=== PATIENT | male | born 1960 | race Caucasian/White ===

== ENCOUNTER 2017-08-16 12:00 | Observation (INO) | payer MEDICARE ==
[2017-08-16 13:05] LABS: ABS Basophils 0 10^3/ul (0-0.2); ABS Eosinophils 0.2 10^3/ul (0-0.6); ABS Lymphocytes 2.1 10^3/ul (1.0-4.8); ABS Monocytes 0.7 10^3/ul (0-0.8); ABS Neutrophils 5.8 10^3/ul (1.5-7.7); ABS Nucleated RBC 0 10^3/ul; Eosinophil % 2.7 % (0-6); Hematocrit 37 % (42-52); Hemoglobin 12.5 g/dl (14.0-18.0); Lymphocyte % 23.4 % (25-47); Mean Corpuscular HGB Conc 34 g/dl (31-36); Mean Corpuscular Hemoglobin 29 pg (27-31); Mean Corpuscular Volume 85 fL (80-94); Mean Platelet Volume 10 um3 (7.4-10.4); Nucleated Red Blood Cells % 0; Platelet Count 227 10^3/ul (150-450); Red Blood Count 4.36 10^6/ul (4.0-5.4); Red Cell Distribution Width 15 % (10.5-15); White Blood Count 8.9 10^3/ul (3.5-10.8)
[2017-08-16 13:22] LABS: EGFR Non-African American 85.1 (>60)
--- NOTE | 2017-08-16 14:46 | RAD ---
HISTORY: Calf pain COMPARISONS: None relevant TECHNIQUE: Multiple transverse and longitudinal ultrasound images were obtained of the right lower extremity from the level of the common femoral vein inferiorly through to the infrapopliteal veins using grayscale, color Doppler, and spectral Doppler imaging with and without compression and with augmentation. Comparison images were obtained of the contralateral common femoral vein. FINDINGS: VEINS: The venous system of the right lower extremity is compressible throughout its course, with normal flow on color Doppler imaging and normal response to augmentation on spectral Doppler imaging. SOFT TISSUES: Unremarkable. OTHER FINDINGS: None. IMPRESSION: NO RIGHT LOWER EXTREMITY DEEP VEIN THROMBOSIS
[2017-08-16] MEDS ORDERED: Morphine INJ* 2 MG/ML 1 ML CARPUJECT IV PRN (15:26)
[2017-08-16] MEDS ORDERED: Albuterol HFA INHALER* 8 gm MDI INH PRN (15:28)
[2017-08-16] MEDS: Cyclobenzaprine TAB* 10 MG PO PRN ×2 (16:16→23:48)
[2017-08-16] MEDS: Gabapentin CAP(*) 300 MG PO SCH ×2 (16:16→23:34)
[2017-08-16] MEDS: Acetaminophen TAB* 325 MG PO PRN ×2 (16:17→23:49)
[2017-08-16] MEDS: oxyCODONE TAB* 5 MG TAB PO PRN ×2 (16:17→23:49)
[2017-08-16] MEDS: Albuterol/Ipratropium NEB.SOL* Albuterol 2.5 MG/Ipratropium 0.5 MG 3 ML INH PRN (16:53)
--- NOTE | 2017-08-16 18:29 | ED ---
Florencio Taylor Angela, scribed for Willie Hester MD on 08/16/17 at 1228 . HPI Chest Pain - HPI Summary HPI Summary: This pt is a 56 y/o male presenting to [facility] via helicopter from [facility] for chest pain. Upon arrival to the ED, pt denies any chest pain, rating it 0/10 in severity. Pt currently has no complaints. He states he is feeling better than when he was in [facility]. Pt reports he was making himself breakfast this morning at around 08:30 when he had sudden onset of chest pain walking from the living room to the kitchen. He describes the chest pain then as sharp and mid sternal. Pt rates the pain then as 4/10 and at its worse it was rated 7/10 in severity. He denies diaphoresis, dizziness, lightheadedness, LE swelling, abd pain. Pt note chronic SOB from COPD, unchanged from baseline. PMHx: COPD, MA. Pt states he currently is on simvastatin, Lisinopril, and 2 baby aspirin every night. 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 - History of Current Complaint Chief Complaint: EDChestWallPain Time Seen by Provider: 08/16/17 12:10 Hx Obtained From: Patient Onset/Duration: Started Hours Ago Time of Onset: 08:30 - now resolved Timing: Lasting Hours Initial Severity: Moderate - 4/10 Current Severity: None Pain Intensity: 0 - now resolved Pain Scale Used: 0-10 Numeric Chest Pain Location: Mid Sternal Chest Pain Radiates: No Character: Sharp/Stabbing - sharp Aggravating Factor(s): Nothing Alleviating Factor(s): Nothing Associated Signs and Symptoms: Positive: Negative - Allergy/Home Medications Allergies/Adverse Reactions: Allergies Allergy/AdvReac Type Severity Reaction Status Date / Time pneumococcal vaccine Allergy Intermediate Swelling Verified 08/16/17 16:16 MS Pneumococcal Vaccine Allergy Swelling Verified 08/16/17 16:40 buspirone AdvReac Intermediate Dizziness Verified 08/16/17 16:16 MS Buspirone AdvReac Dizziness Verified 08/16/17 16:41 Home Medications: Home Medications Albuterol Sulfate [Proventil Hfa] 2 puff INH Q4HR PRN 08/16/17 [History Confirmed 08/16/17] Aspirin EC Low Dose* [Ecotrin EC Low Dose 81 MG*] 162 mg PO DAILY 08/16/17 [ History Confirmed 08/16/17] Cyclobenzaprine TAB* [Flexeril 10 MG TAB*] 10 mg PO TID PRN 08/16/17 [History Confirmed 08/16/17] Fluticasone-Salmeterol 500-50* [Advair Diskus 500-50*] 1 puff INH BID 08/16/17 [ History Confirmed 08/16/17] Gabapentin CAP(*) [Neurontin 300 CAP(*)] 300 mg PO TID 08/16/17 [History Confirmed 08/16/17] LevoCETirizine TAB (NF) [Xyzal TAB (NF)] 5 mg PO DAILY 08/16/17 [History Confirmed 08/16/17] Lisinopril TAB* [Prinivil TAB*] 20 mg PO DAILY 08/16/17 [History Confirmed 08/16] Oxycodone TAB(NF) [Oxycodone HCl 10 MG] 10 mg PO Q6H PRN 08/16/17 [History Confirmed 08/16/17] Pantoprazole TAB (NF) [Protonix TAB (NF)] 40 mg PO DAILY 08/16/17 [History Confirmed 08/16/17] Roflumilast (NF) [Daliresp (NF)] 500 mcg PO DAILY 08/16/17 [History Confirmed ] Simvastatin (NF) [Zocor (NF)] 40 mg PO BEDTIME 08/16/17 [History Confirmed 08/16] PMH/Surg Hx/FS Hx/Imm Hx Endocrine/Hematology History: Denies: Hx Diabetes Cardiovascular History: Reports: Hx Hypertension, Hx Myocardial Infarction Infectious Disease History: No Infectious Disease History: Denies: Traveled Outside the [place] in Last 30 Days - Family History Known Family History: Positive: Cardiac Disease - MA, Hypertension Negative: Diabetes - Social History Alcohol Use: None Substance Use Type: Reports: Cocaine Smoking Status (MU): Never Smoked Tobacco Review of Systems Negative: Fever, Chills, Skin Diaphoresis Positive: Chest Pain - NOW RESOLVED Negative: Shortness Of Breath Negative: Abdominal Pain Negative: Edema Neurological: Other - NEG: dizziness, lightheadedness All Other Systems Reviewed And Are Negative: Yes Physical Exam - Summary Physical Exam Summary: VITAL SIGNS: Reviewed. GENERAL: Patient is a well-developed and nourished male who is lying comfortable in the stretcher. Pt is not in no acute distress. Patient is not in any acute respiratory distress. Pt has no complaints. HEAD AND FACE: No signs of trauma. No ecchymosis, hematomas or skull depressions. No sinus tenderness. EYES: PERRLA, EOMI x 2, No injected conjunctiva, no nystagmus. EARS: Hearing grossly intact. Ear canals and tympanic membranes are within normal limits. MOUTH: Oropharynx within normal limits. NECK: Supple, trachea is midline, no adenopathy, no JVD, no carotid bruit, no c- spine tenderness, neck with full ROM. CHEST: Symmetric, no tenderness at palpation LUNGS: Some crackles at the bases of the lungs. CVS: Regular rate and rhythm, S1 and S2 present, no murmurs or gallops appreciated. ABDOMEN: Soft, non-tender. No signs of distention. No rebound no guarding, and no masses palpated. Bowel sounds are normal. EXTREMITIES: FROM in all major joints, no edema, no cyanosis or clubbing. NEURO: Alert and oriented x 3. No acute neurological deficits. Speech is normal and follows commands. SKIN: Dry and warm Triage Information Reviewed: Yes Vital Signs On Initial Exam: Initial Vitals Temp Pulse Resp BP Pulse Ox 98.7 F 88 20 113/84 98 08/16/17 12:13 08/16/17 12:13 08/16/17 12:13 08/16/17 12:13 08/16/17 12:13 Vital Signs Reviewed: Yes Diagnostics - Vital Signs Vital Signs Temp Pulse Resp BP Pulse Ox 08/16/17 12:13 98.7 F 88 20 113/84 98 - Laboratory Lab Results: Lab Results 08/16/17 08/16/17 08/16/17 Range/Units 12:34 12:34 12:34 WBC 8.9 (3.5-10.8) 10^3/ul RBC 4.36 (4.0-5.4) 10^6/ul Hgb 12.5 L (14.0-18.0) g/dl Hct 37 L (42-52) % MCV 85 (80-94) fL MCH 29 (27-31) pg MCHC 34 (31-36) g/dl RDW 15 (10.5-15) % Plt Count 227 (150-450) 10^3/ul MPV 10 (7.4-10.4) um3 Neut % (Auto) 65.0 (38-83) % Lymph % (Auto) 23.4 L (25-47) % [place] % (Auto) 8.4 (1-9) % Eos % (Auto) 2.7 (0-6) % Baso % (Auto) 0.5 (0-2) % Absolute Neuts (auto) 5.8 (1.5-7.7) 10^3/ul Absolute Lymphs (auto) 2.1 (1.0-4.8) 10^3/ul Absolute Monos (auto) 0.7 (0-0.8) 10^3/ul Absolute Eos (auto) 0.2 (0-0.6) 10^3/ul Absolute Basos (auto) 0 (0-0.2) 10^3/ul Absolute Nucleated RBC 0 10^3/ul Nucleated RBC % 0 Sodium 136 (133-145) mmol/L Potassium 4.2 (3.5-5.0) mmol/L Chloride 102 (101-111) mmol/L Carbon Dioxide 29 (22-32) mmol/L Anion Gap 5 (2-11) mmol/L BUN 21 (6-24) mg/dL Creatinine 0.92 (0.67-1.17) mg/dL Est GFR ( Amer) 109.4 (>60) Est GFR (Non-Af Amer) 85.1 (>60) BUN/Creatinine Ratio 22.8 H (8-20) Glucose 106 H (70-100) mg/dL Calcium 9.1 (8.6-10.3) mg/dL Magnesium 2.5 (1.9-2.7) mg/dL Total Bilirubin 0.60 (0.2-1.0) mg/dL AST 21 (13-39) U/L ALT 56 H (7-52) U/L Alkaline Phosphatase 63 (34-104) U/L Total Creatine Kinase 89 (10-223) U/L CK-MB (CK-2) 5.8 (0.6-6.3) ng/mL Troponin I 0.00 (<0.04) ng/mL B-Natriuretic Peptide 17 ( - 100) pg/mL Total Protein 6.3 L (6.4-8.9) g/dL Albumin 3.6 (3.2-5.2) g/dL Globulin 2.7 (2-4) g/dL Albumin/Globulin Ratio 1.3 (1-3) TSH 0.99 (0.34-5.60) mcIU/mL Result Diagrams: 08/16/17 12:34 08/16/17 12:34 Lab Statement: Any lab studies that have been ordered have been reviewed, and results considered in the medical decision making process. - Ultrasound No standard instances Ultrasound Interpretation: No Acute Changes - Right Lower Extremity US IMPRESSION: No right lower extremity deep vein thrombosis. Dr. Hester has reviewed this radiology report. Ultrasound Interpretation Completed By: Radiologist - EKG 12:09 Cardiac Rate: NL EKG Rhythm: Sinus Tachycardia - at 89 bpm Ectopy: PVCs - multiple EKG Interpretation: questionable ST elevation less than 1 mm in aVF. Chest Pain Course/Dx - Course Assessment/Plan: This pt is a 56 y/o male presenting to [facility] via helicopter from [facility] for chest pain. Upon arrival to the ED, pt denies any chest pain, rating it 0/10 in severity. Pt currently has no complaints. He states he is feeling better than when he was in [facility]. Pt reports he was making himself breakfast this morning at around 08:30 when he had sudden onset of chest pain walking from the living room to the kitchen. He describes the chest pain then as sharp and mid sternal. Pt rates the pain then as 4/10 and at its worse it was rated 7/10 in severity. He denies diaphoresis, dizziness , lightheadedness, LE swelling, abd pain. Pt note chronic SOB from COPD, unchanged from baseline. PMHx: COPD, MA. Pt states he currently is on simvastatin, Lisinopril, and 2 baby aspirin every night. Pt received nitro, ASA , and heparin [employer] HADOOP DEVELOPER to the ED. Initially the pt was transferred via helicopter from [facility] reporting he had an acute MA. Dr. Connors was not convinced of these findings and requested for the pt to be evaluated in the ED. At arrival to the ED, pt reports no chest pain rating it 0/10, no dizziness, and no headache. He reports no other symptoms. At [facility], the pt was given nitroglycerin. I repeated the blood work which shows slight anemia without any other abnormalities. Chest XR from [facility] was read as no acute disease. Pt was complaining of right calf pain so I decided to do an ultrasound, which is negative for DVT. EKG shows NSR at 89 bpm with multiple PVS and questionable ST elevation less than 1 mm in aVF. At this point I discussed with Dr. Connors, who recommends admission to the hospitalist. I discussed the pts case with Dr. Ornelas, hospitalist, who accepts the pt for admission. Pt is hemodynamically stable, alert and oriented x3. - Chest Pain Differential Diagnosis/HQI/PQRI: Acute MA, ACS, Angina, Aortic Aneurysm, CHF, Chest Wall, GI Disease - Diagnoses Provider Diagnoses: Chest pain, rule out ACS - Provider Notifications Discussed Care Of Patient With: Caleb Ornelas Time Discussed With Above Provider: 14:00 Instructed by Provider To: Other - I discussed pt care with Dr. Orneals, hospitalist, who has agreed to admit the pt. Discharge - Discharge Plan Condition: Stable Disposition: ADMITTED TO [facility] The documentation as recorded by the Florencio gaming Angela accurately reflects the service I personally performed and the decisions made by me, Willie Hester MD.
--- NOTE | 2017-08-16 20:28 | HP ---
CC: Dr. Hughes * HISTORY AND PHYSICAL: DATE OF ADMISSION: 08/16/17 PRIMARY CARE PROVIDER: Dr. Hughes from [place]. CHIEF COMPLAINT: Chest pain. HISTORY OF PRESENT ILLNESS: Mr. Flor is a 56-year-old male with history of COPD, not on oxygen with recent exacerbation for which he needed to be hospitalized at [facility] up to a week ago. The patient presented to [facility] today complaining of sharp severe chest pain localized in the left lower chest, radiating to the back, not pleuritic and not worsened with movement or change of position. The pain lasted approximately 30 minutes and resolved after nitroglycerin and morphine treatment at [facility]. The patient stated he never had pain like that before. He was transferred from [facility] to our facility for further evaluation. His initial troponin is unremarkable and EKG showed sinus tachycardia with minimal ST changes. The patient is going to be placed on observation with a diagnosis of chest pain to rule out ischemia. PAST MEDICAL HISTORY: 1. COPD, not on oxygen. Recent hospitalization a week ago at [facility] noted. 2. History of cardiac catheterization at [facility] in [place] in 2004 with stent to the RCA. 3. History of ACL repair on the right. 4. History of hernia inguinal repair with mesh bilaterally. 5. History of right hand tendon repair. 6. History of tonsillectomy. 7. History of chronic lower back pain. 8. Gastroesophageal reflux disease. MEDICATIONS: Include: 1. Xyzal 5 mg daily. 2. Albuterol inhaler 2 puffs every 4 hours p.r.n. 3. Lisinopril 20 mg daily. 4. Aspirin 162 mg daily. 5. Daliresp 500 mcg daily. 6. Simvastatin 40 mg daily. 7. Gabapentin 300 mg 3 times a day. 8. Advair 500/50 one inhalation b.i.d. 9. Flexeril 10 mg 3 times a day p.r.n. 10. Oxycodone 10 mg every 6 hours p.r.n. 11. Protonix 40 mg daily. ALLERGIES: PNEUMOCOCCAL VACCINE and BUSPAR. FAMILY HISTORY: Positive for father who secondary to COPD at the age of 63. Mother with history of heart disease who in her 80s. SOCIAL HISTORY: The patient has a history of 20-pack year smoking and he quit over 20 years ago. He denies any alcohol or drug use. He is on disability due to his lower back. He is and his is his surrogate and his 's name is Yumiko Flor. REVIEW OF SYSTEMS: Please see history of present illness. The patient stated that he is still wheezing from his COPD exacerbation for which he was hospitalized a week ago. He has chronic lower back pain which has been unchanged. He noted that he has calf pain in bilateral lower extremities when he is walking. All the remaining 12 systems were reviewed with the patient and were otherwise negative. PHYSICAL EXAMINATION GENERAL: The patient is a very pleasant 56-year-old male, who is in no acute distress. Alert, awake, and oriented x3. VITAL SIGNS: Blood pressure of 119/76, heart rate of 80 and regular, respiratory rate 18, oxygen saturation 94% on room air, temperature of 97.6. HEENT: Head: Atraumatic and normocephalic. Eyes: Pupils are equal, reactive to light and accommodation. Oropharynx clear. Mucosa moist. NECK: Supple. No JVD. No bruits bilaterally. RESPIRATORY: Distant breath sounds bilaterally with scant bilateral wheezes in the mid lungs. CARDIOVASCULAR: Regular rate and rhythm. No murmur. ABDOMEN: Protuberant, obese, soft, nontender. Bowel sounds present in all 4 quadrants. EXTREMITIES: There is no edema. Pulses +2 bilaterally. No clubbing or cyanosis. NEURO EVALUATION: Speech clear. Cranial nerves II through XII grossly intact. Motor strength is 5/5 bilaterally. DIAGNOSTIC STUDIES/LAB DATA: Showed white blood cell count of 8.9, hemoglobin of 12.5, hematocrit 37, and platelets of 227. Sodium was 136, potassium 4.2, chloride 102, carbon dioxide 29, BUN 21, and creatinine 0.92. Liver function tests unremarkable apart from AST mild elevation at 56. Troponin of 0. Brain natriuretic peptide was 17. TSH was 0.99. The patient's portable chest x-ray read at [facility] as within normal limits. The patient had venous Doppler study of right lower extremity which showed no DVT. The patient's EKG showed sinus tachycardia with a heart rate of 89 beats per minute with multiple PVCs. No acute ST changes. There was no old EKG available for comparison at our facility. ASSESSMENT AND PLAN: 1. Chest pain. Somewhat atypical stabbing chest pain in the left chest. Now, the patient is chest pain free. He is going to be placed for overnight observation with followup troponins. We will continue his statin and aspirin as well as his lisinopril. If his troponins continue to be negative, he is going to undergo a cardiac stress test in the morning. 2. The patient has history of bilateral calf pain. Nevertheless, his peripheral pulses are pretty good and I do not believe it is due to intermittent claudication. It may be due to neurologic claudication from his lower back, which is chronic problem with. 3. For his history of lower back pain which is chronic, the patient's oxycodone , Flexeril, as well as gabapentin is going to be continued. 4. In regards to the patient's dyslipidemia, fasting lipid profile is going to be obtained and his statin is going to be continued. 5. The patient's chronic obstructive pulmonary disease appears to be rather well controlled despite recent exacerbation. We will continue the patient's inhalers as well as nebulizers on a p.r.n. basis. 6. For DVT prophylaxis, the patient is going to be placed on heparin subcutaneously. TIME SPENT: Approximately 65 minutes was spent on admission of this patient, more than half that time was spent [id number] with the patient during the interview and physical exam. [id number]/[facility] #: [id number] BARB
[2017-08-16] MEDS: Mometasone/Formoter 200/5 MDI INH SCH (20:35)
[2017-08-16] MEDS ORDERED: Atorvastatin* 20 MG TAB PO SCH (21:00)
[2017-08-16] MEDS: Heparin VIAL(*) 5000 UNITS/ML VIAL (FIVE THOUSAND) SUBCUT SCH (23:40)
[2017-08-17] MEDS: Heparin VIAL(*) 5000 UNITS/ML VIAL (FIVE THOUSAND) SUBCUT SCH ×2 (05:34→13:53)
[2017-08-17] MEDS: Mometasone/Formoter 200/5 MDI INH SCH (07:45)
[2017-08-17] MEDS: Albuterol/Ipratropium NEB.SOL* Albuterol 2.5 MG/Ipratropium 0.5 MG 3 ML INH PRN (07:45)
[2017-08-17] MEDS ORDERED: Lisinopril TAB* 10 MG PO SCH (09:00)
[2017-08-17] MEDS ORDERED: Aspirin EC Low Dose* 81 MG TAB.EC PO SCH (09:00)
[2017-08-17] MEDS: oxyCODONE TAB* 5 MG TAB PO PRN (10:01)
[2017-08-17] MEDS: Gabapentin CAP(*) 300 MG PO SCH ×2 (10:01→14:42)
--- NOTE | 2017-08-17 11:14 | RAD ---
HISTORY: Chest pain, shortness of breath, cardiac catheterization, hypertension, angioplasty, abnormal EKG COMPARISONS: None TECHNIQUE: A 1 day stress/rest myocardial perfusion study was performed, with exercise stress. The exercise portion was performed using the Fortunato protocol, for a total METs of 7. The stress portion was monitored by Dr. Paula. Gated SPECT imaging was performed, without CT-based attenuation correction, secondary to patient claustrophobia DOSE: Stress: Technetium 99m tetrofosmin, 25.7 millicuries, injected at 9:11 AM on August 17, 2017 Rest: Technetium 99m tetrofosmin, 10.9 millicuries, injected at 6:59 AM on August 17, 2017 Pharmacologic agent: None FINDINGS: CARDIAC MONITORING: Peak heart rate of 136 bpm, 83% of predicted EF: 55% TID: 0.95 MOTION: Normal motion, with normal wall thickening. PERFUSION: There is photopenia of the inferior wall which is essentially matched on the planar images and may reflect attenuation artifact. OTHER: None IMPRESSION: PHOTOPENIA OF THE INFERIOR WALL WHICH IS MATCHED AND LIKELY REPRESENTS ATTENUATION ARTIFACT. NO DEFINITE FIXED OR REVERSIBLE PERFUSION DEFECT. ASSESSMENT: LOW RISK. Based on imaging criteria from ACC/AHA 2002. Guideline Update for the Management of Patient's with Chronic Stable Angina, table 23. Noninvasive Risk Stratification. .CPT II Codes: 2611N5Y
[2017-08-17 11:32] VITALS: BP 120/71
--- NOTE | 2017-08-17 23:39 | DS ---
CC: Daniel Hughes MD * DISCHARGE SUMMARY: DATE OF ADMISSION: 08/16/17 DATE OF DISCHARGE: 08/17/17 PRIMARY CARE PROVIDER: Dr. Hughes from [place]. DISCHARGE DIAGNOSIS: Sharp stabbing left lower chest pain with low probability cardiac stress test documented on 08/17/17. SECONDARY DIAGNOSES: 1. History of chronic obstructive pulmonary disease with a recent exacerbation. 2. History of coronary artery disease with stenting in 2004. 3. History of inguinal hernia repair bilaterally. 4. Dyslipidemia. 5. Obesity. MEDICATIONS AT DISCHARGE: Unchanged from admission and include: 1. Xyzal 5 mg daily. 2. Albuterol inhaler on a p.r.n. basis. 3. Lisinopril 20 mg daily. 4. Aspirin 162 mg daily. 5. Daliresp 500 mcg daily. 6. Simvastatin 40 mg daily. 7. Gabapentin 300 mg 3 times a day. 8. Advair 500/50 one inhalation b.i.d. 9. Flexeril 10 mg 3 times a day p.r.n. 10. Oxycodone 10 mg every 6 hours p.r.n. 11. Protonix 40 mg daily. LABORATORY DATA DURING THE HOSPITAL STAY: Included: The patient's troponins continued to be negative at 0.20 to 0.01. His triglycerides were 241, cholesterol total of 166, LDL of 85 and HDL of 32. TSH was 0.99. Cardiac stress test. The nuclear portion of it documented on 08/17/17 was read , impression: "For the pain in the inferior wall which is marked, likely represents attenuation artifact. No definite fixed or reversible perfusion defect." It was assessed as low risk. The EF was noted to be 55%. PHYSICAL EXAMINATION AT DISCHARGE: Unchanged from admission. At discharge, the patient is recommended to follow up with his primary care provider Dr. Hughes in approximately 4 to 7 days. HOSPITALIZATION COURSE: Olvin Flor is a 56-year-old male with history of COPD, obesity, coronary artery disease who presented complaining of sharp stabbing pain on the left lower chest through [facility]. The patient appeared to be in significant discomfort and the [facility] decided for the patient to be transferred to [facility] Emergency Department for further evaluation. Here his EKG was unremarkable and troponin was negative. The patient was observed on telemetry monitored bed. His troponins continued to be negative throughout his hospital stay. In the morning, his stress test was a low probability and the patient is going to be discharged home with recommendation to follow up with his primary care physician as above mentioned. Please note that this is a short summary of the patient's hospitalization, please refer to further medical records for details. [id number]/[facility] #: [id number] MTDD
== END 2017-08-17 14:35 | disposition home or self-care (01) ==
LOC: ED 12:00 → EDSTATUS 12:05 → MEDTELE 14:14
PROVIDERS: ADMIT Internal Medicine; ATTEND Internal Medicine
DX: R07.9 Chest pain, unspecified (principal); J44.9 Chronic obstructive pulmonary disease, unspecified; Z95.5 Presence of coronary angioplasty implant and graft; M54.5 Low back pain; G89.29 Other chronic pain; Z87.891 Personal history of nicotine dependence; Z86.79 Personal history of other diseases of the circulatory system; E78.5 Hyperlipidemia, unspecified; E66.9 Obesity, unspecified; Z79.82 Long term (current) use of aspirin; Z98.890 Other specified postprocedural states; I25.2 Old myocardial infarction
CPT/HCPCS: 36415; 78452; 80053; 80061; 82550; 82553; 83735; 83880; 84443; 84484; 85025; 93005; 93017; 94640; 94760; 96374; 96375; 99284; A9270-GY; A9502; G0378; J1644

== ENCOUNTER 2020-11-22 18:10 | Inpatient (IN) ==
[2020-11-22] MEDS ORDERED: Al Hydrox/Mg Hydrox/Simet LIQ 30 ML UDC PO PRN (20:56)
[2020-11-22] MEDS ORDERED: Ondansetron 4 mg VIAL 2 MG/ML 2 ml VIAL IV PRN (20:56)
[2020-11-22] MEDS: Albuterol/Ipratropium NEB.SOL (2.5/0.5 MG) 3 ML NEB.SOLN INH PRN (21:31)
[2020-11-22] MEDS ORDERED: Aspirin EC 81 mg TAB.EC (enteric coated) PO SCH (22:00)
[2020-11-22] MEDS: Heparin 5000 UNITS/ML 1 mL VIAL SUBCUT SCH (22:04)
[2020-11-22] MEDS: Mometasone/Formoter 200/5 MDI INH SCH (22:10)
[2020-11-23] MEDS: Nicotine PATCH 7 MG/24 HR PATCH TRANSDERM SCH ×2 (02:29→15:34)
[2020-11-23 04:18] LABS: ABS Eosinophils 0.2 10^3/ul (0-0.6); ABS Lymphocytes 0.7 10^3/ul (1.0-4.8); ABS Monocytes 0.5 10^3/ul (0-0.8); ABS Neutrophils 3.5 10^3/ul (1.5-7.7); Eosinophil % 3.3 %; Hematocrit 34 % (42-52); Hemoglobin 11.7 g/dL (14.0-18.0); Lymphocyte % 14.1 %; Mean Corpuscular HGB Conc 35 g/dL (31-36); Mean Corpuscular Hemoglobin 29 pg (27-31); Mean Corpuscular Volume 84 fL (80-94); Mean Platelet Volume 9.8 fL (7.4-10.4); Platelet Count 253 10^3/uL (150-450); Red Blood Count 4.02 10^6 /uL (4.18-5.48); Red Cell Distribution Width 15 % (10-15); White Blood Count 4.9 10^3/uL (3.5-10.8)
[2020-11-23 04:32] LABS: Albumin 3.6 g/dL (3.2-5.2); Albumin/Globulin Ratio 1.4 (1-3); Calcium 8.7 mg/dL (8.6-10.3); EGFR African American 151.6 (>60); EGFR Non-African American 125.3 (>60); Globulin 2.6 g/dL (2-4); Potassium 3.5 mmol/L (3.5-5.0); Total Bilirubin 0.3 mg/dL (0.2-1.0); Total Protein 6.2 g/dL (6.4-8.9)
[2020-11-23] MEDS: Heparin 5000 UNITS/ML 1 mL VIAL SUBCUT SCH (05:21)
[2020-11-23] MEDS: HYDROmorphone 1 MG/1 ML SYRINGE IV SLOW PU PRN ×4 (06:10→21:28)
[2020-11-23] MEDS: Albuterol/Ipratropium NEB.SOL (2.5/0.5 MG) 3 ML NEB.SOLN INH PRN ×3 (06:55→17:09)
[2020-11-23] MEDS: Mometasone/Formoter 200/5 MDI INH SCH ×2 (07:01→21:07)
[2020-11-23 09:47] LABS: INR 1.06 (0.82-1.09)
[2020-11-23] MEDS ORDERED: Vancomycin 1,000 MG VIAL ONE (09:50)
[2020-11-23] MEDS ORDERED: ceFAZolin 2 GM PREMIX 2 GM/50 ML BAG ONE (10:10)
[2020-11-23] MEDS ORDERED: Buffered Lidocaine 1% SYRIN 1 ml INTRADERM ONE (10:27)
[2020-11-23] MEDS ORDERED: fentaNYL 250 mcg/5 ml 50 MCG/ML 5 ml VIAL (250 MCG) ONE (10:39)
[2020-11-23] MEDS ORDERED: Midazolam 5 mg/5 ml VIAL 1 mg/ml 5 ml VIAL (5 mg) ONE (10:39)
[2020-11-23] MEDS ORDERED: Lidocaine 2% PF 5 ML VIAL ONE (10:41)
[2020-11-23] MEDS ORDERED: diPHENhydraMINE IV 50 MG/ML 1 ml VIAL (BENADRYL) IV PRN (10:47)
[2020-11-23] MEDS ORDERED: Naloxone 0.4 mg VIAL 0.4 mg/ml 1 ml VIAL IV PRN (10:47)
[2020-11-23] MEDS ORDERED: Ondansetron 4 mg VIAL 2 MG/ML 2 ml VIAL IV PRN (10:47)
[2020-11-23] MEDS ORDERED: fentaNYL 100 mcg/2 ml 50 MCG/ML VIAL ONE (11:00)
[2020-11-23] MEDS ORDERED: Lactated Ringers 1000 ml BAG 1,000 ML IV SCH (11:00)
[2020-11-23] MEDS ORDERED: Albuterol/Ipratropium NEB.SOL (2.5/0.5 MG) 3 ML NEB.SOLN ONE (13:47)
[2020-11-23] MEDS ORDERED: diPHENhydraMINE IV 50 MG/ML 1 ml VIAL (BENADRYL) ONE (14:27)
[2020-11-23] MEDS: HYDROcodone/ACETAMIN 5/325 mg TAB PO PRN ×2 (16:32→20:32)
[2020-11-23] MEDS: ceFAZolin 1 GM X 3 DOSES POST-OP Q8H (AddVan) IVPB SCH (17:39)
[2020-11-24] MEDS: HYDROcodone/ACETAMIN 5/325 mg TAB PO PRN ×5 (00:33→23:39)
[2020-11-24] MEDS: HYDROmorphone 1 MG/1 ML SYRINGE IV SLOW PU PRN ×5 (01:48→21:26)
[2020-11-24] MEDS: ceFAZolin 1 GM X 3 DOSES POST-OP Q8H (AddVan) IVPB SCH ×2 (01:49→10:55)
[2020-11-24 06:13] LABS: ABS Basophils 0.1 10^3/ul (0-0.2); ABS Eosinophils 0.3 10^3/ul (0-0.6); ABS Lymphocytes 0.9 10^3/ul (1.0-4.8); ABS Monocytes 0.5 10^3/ul (0-0.8); ABS Neutrophils 4.1 10^3/ul (1.5-7.7); Eosinophil % 4.9 %; Hematocrit 35 % (42-52); Lymphocyte % 15.5 %; Mean Corpuscular HGB Conc 34 g/dL (31-36); Mean Corpuscular Hemoglobin 29 pg (27-31); Mean Corpuscular Volume 85 fL (80-94); Mean Platelet Volume 9.8 fL (7.4-10.4); Platelet Count 270 10^3/uL (150-450); Red Cell Distribution Width 14 % (10-15); White Blood Count 5.8 10^3/uL (3.5-10.8)
[2020-11-24 06:48] LABS: EGFR African American 154.4 (>60); EGFR Non-African American 127.6 (>60); Potassium 4.1 mmol/L (3.5-5.0)
[2020-11-24] MEDS: Mometasone/Formoter 200/5 MDI INH SCH ×2 (08:50→20:39)
[2020-11-24] MEDS: Heparin 5000 UNITS/ML 1 mL VIAL SUBCUT SCH ×2 (09:04→21:21)
[2020-11-24] MEDS: diPHENhydraMINE 25 mg TAB PO PRN ×2 (10:50→21:26)
[2020-11-24] MEDS: Albuterol/Ipratropium NEB.SOL (2.5/0.5 MG) 3 ML NEB.SOLN INH PRN (14:11)
[2020-11-24] MEDS: Nicotine PATCH 7 MG/24 HR PATCH TRANSDERM SCH (14:25)
[2020-11-25] MEDS: HYDROcodone/ACETAMIN 5/325 mg TAB PO PRN ×3 (04:44→18:32)
[2020-11-25 05:23] LABS: ABS Eosinophils 0.4 10^3/ul (0-0.6); ABS Monocytes 0.6 10^3/ul (0-0.8); ABS Neutrophils 4.1 10^3/ul (1.5-7.7); Eosinophil % 6.1 %; Hematocrit 37 % (42-52); Hemoglobin 12.3 g/dL (14.0-18.0); Lymphocyte % 16.2 %; Mean Corpuscular HGB Conc 34 g/dL (31-36); Mean Corpuscular Hemoglobin 28 pg (27-31); Mean Corpuscular Volume 85 fL (80-94); Mean Platelet Volume 9.4 fL (7.4-10.4); Platelet Count 283 10^3/uL (150-450); Red Blood Count 4.35 10^6 /uL (4.18-5.48); Red Cell Distribution Width 15 % (10-15); White Blood Count 6.1 10^3/uL (3.5-10.8)
[2020-11-25 05:36] LABS: Calcium 9.1 mg/dL (8.6-10.3); Potassium 4.1 mmol/L (3.5-5.0)
[2020-11-25 05:42] LABS: EGFR African American 166.3 (>60); EGFR Non-African American 137.4 (>60)
[2020-11-25] MEDS: Heparin 5000 UNITS/ML 1 mL VIAL SUBCUT SCH ×2 (08:45→21:09)
[2020-11-25] MEDS: Nicotine PATCH 7 MG/24 HR PATCH TRANSDERM SCH (08:49)
[2020-11-25] MEDS: Mometasone/Formoter 200/5 MDI INH SCH ×2 (09:51→19:53)
[2020-11-25] MEDS: Albuterol/Ipratropium NEB.SOL (2.5/0.5 MG) 3 ML NEB.SOLN INH PRN ×2 (09:54→18:34)
[2020-11-25] MEDS: HYDROmorphone 1 MG/1 ML SYRINGE IV SLOW PU PRN (11:00)
[2020-11-26] MEDS: HYDROcodone/ACETAMIN 5/325 mg TAB PO PRN ×4 (03:08→21:30)
[2020-11-26 06:09] LABS: ABS Basophils 0.1 10^3/ul (0-0.2); ABS Eosinophils 0.5 10^3/ul (0-0.6); ABS Monocytes 0.7 10^3/ul (0-0.8); Eosinophil % 7.8 %; Hematocrit 37 % (42-52); Hemoglobin 12.9 g/dL (14.0-18.0); Lymphocyte % 15.8 %; Mean Corpuscular HGB Conc 35 g/dL (31-36); Mean Corpuscular Hemoglobin 29 pg (27-31); Mean Corpuscular Volume 84 fL (80-94); Mean Platelet Volume 9.6 fL (7.4-10.4); Platelet Count 302 10^3/uL (150-450); Red Blood Count 4.47 10^6 /uL (4.18-5.48); Red Cell Distribution Width 15 % (10-15); White Blood Count 6.3 10^3/uL (3.5-10.8)
[2020-11-26 06:27] LABS: Calcium 9.6 mg/dL (8.6-10.3); EGFR African American 180.1 (>60); EGFR Non-African American 148.8 (>60); Potassium 4.1 mmol/L (3.5-5.0)
[2020-11-26] MEDS: Nicotine PATCH 7 MG/24 HR PATCH TRANSDERM SCH (08:24)
[2020-11-26] MEDS: Magnesium Hydroxide LIQ 30 ML UDC PO PRN ×2 (08:24→18:38)
[2020-11-26] MEDS: Heparin 5000 UNITS/ML 1 mL VIAL SUBCUT SCH ×2 (08:24→21:31)
[2020-11-26] MEDS: Mometasone/Formoter 200/5 MDI INH SCH ×2 (09:22→19:50)
[2020-11-27] MEDS: HYDROcodone/ACETAMIN 5/325 mg TAB PO PRN ×2 (01:59→08:51)
[2020-11-27 04:54] LABS: Calcium 9.2 mg/dL (8.6-10.3); EGFR African American 169.6 (>60); EGFR Non-African American 140.1 (>60); Potassium 4.3 mmol/L (3.5-5.0)
[2020-11-27] MEDS: Mometasone/Formoter 200/5 MDI INH SCH (07:48)
[2020-11-27] MEDS: Nicotine PATCH 7 MG/24 HR PATCH TRANSDERM SCH (08:55)
[2020-11-27] MEDS: Heparin 5000 UNITS/ML 1 mL VIAL SUBCUT SCH (08:57)
[2020-11-27 11:37] VITALS: BP 136/77
== END 2020-11-27 12:45 | DRG 313 ==
LOC: SSU 20:22
PROVIDERS: ADMIT Internal Medicine; ATTEND Internal Medicine